=== PATIENT | female | born 1950 | race Caucasian/White ===

== ENCOUNTER 2021-05-10 21:46 | Emergency (ER) | payer OTHER ==
[~2021-05-10] VITALS: Ht 149.9 cm; Wt 61.2 kg
[2021-05-10] MEDS ORDERED: PROAIR HFA8.5 GM INH (22:01)
[2021-05-10] MEDS ORDERED: FLONASE 0.05%50 MCG NARES (22:02)
[2021-05-10] MEDS ORDERED: ALIVE ONCE DAI1 EACH PO (22:02)
[2021-05-10] MEDS ORDERED: ALLEGRA ALLERG180 MG PO (22:02)
[2021-05-10] MEDS ORDERED: LISINOPRIL10 MG PO (22:02)
[2021-05-10] MEDS ORDERED: FOLIC ACID1 MG PO (22:02)
[2021-05-10] MEDS ORDERED: METHOTREXATE 22.5 M1 PO (22:03)
[2021-05-10] MEDS ORDERED: EFFER-K 10 MEQ10 ME1 PO (22:04)
[2021-05-10] MEDS ORDERED: SIMVASTATIN80 MG PO (22:04)
[2021-05-10] MEDS ORDERED: FISH OIL 1,2001 EAC3 PO (22:04)
[2021-05-10] MEDS ORDERED: VITAMIN B-1100 M2 PO (22:05)
[2021-05-10] MEDS ORDERED: COQ-1030 MG PO (22:05)
[2021-05-10] MEDS ORDERED: VITAMIN D31250 MCG PO (22:06)
[2021-05-10 22:35] LABS: ABSOLUTE BASOPHILS 0.1 thou/uL (0.0-0.2); ABSOLUTE EOSINOPHILS 0.2 thou/uL (0.0-0.7); ABSOLUTE LYMPHOCYTES 2.9 thou/uL (0.8-5.3); ABSOLUTE MONOCYTES 0.5 thou/uL (0.0-1.2); ABSOLUTE NEUTROPHILS 3.8 thou/uL (1.6-8.1); BASOPHILS 1.2 %; EOSINOPHILS 3.1 %; HEMATOCRIT 35.4 % (37.0-47.0); HEMOGLOBIN 11.7 gm/dL (12.0-15.0); LYMPHOCYTES 38.8 %; MCH 27.5 pg (26.0-34.0); MCV 83.5 fL (80.0-100.0); MPV 8.2 fl. (7.2-11.1); NUCLEATED RBCS 0 /100WBC; PLATELET COUNT* 254 thou/uL (150-400); POLYS 49.9 %; RBC 4.25 mil/uL (4.20-5.00); RDW-CV 15.6 % (10.5-14.5); WBC 7.6 thou/uL (4.0-11.0)
[2021-05-10 22:39] LABS: CALCIUM 8.9 mg/dL (8.5-10.1); CREATININE 0.9 mg/dL (0.6-1.3); POTASSIUM 3.5 mmol/L (3.5-5.1)
[2021-05-10 22:43] LABS: ALBUMIN 3.4 g/dL (3.4-5.0); TOTAL BILIRUBIN 0.1 mg/dL (<0.1-1.0); TOTAL PROTEIN 7.6 g/dL (6.4-8.2)
[2021-05-10 23:27] LABS: URINE BILIRUBIN NEGATIVE (Negative); URINE BLOOD TRACE (Negative); URINE CLARITY CLEAR; URINE COLOR YELLOW; URINE GLUCOSE-RANDOM NEGATIVE (Negative); URINE KETONES NEGATIVE (Negative); URINE LEUKOCYTES-REFLEX 1+ (Negative); URINE NITRITE-REFLEX NEGATIVE (Negative); URINE PROTEIN NEGATIVE (Negative); URINE SPECIFIC GRAVITY 1.015 (1.005-1.030); URINE UROBILINOGEN 0.2 E.U./dl (0.2-1.0)
[2021-05-10 23:47] LABS: BACTERIA-REFLEX >30 Many /HPF (None Seen); CRYSTALS None Seen /LPF (None Seen); FINE GRANULAR CASTS 0-3 Few /LPF (None Seen); HYALINE CASTS 0-3 Few /LPF (None Seen); MUCUS 4-6 Moderate strn/LPF (None Seen); SQUAMOUS 0-3 Few /LPF (0-3); URINE RBC 3-10 Few /HPF (0-2); URINE WBC-REFLEX >25 Many /HPF (0-5)
[2021-05-10 23:52] VITALS: BP 187/97
--- NOTE | 2021-05-11 14:34 | EKG ---
[place] [address] ELECTROCARDIOGRAM REPORT Name: JONATHAN SHINE Room: [facility]#: [id number] Admission: 05/10/21 Attend Phys: Discharge: Date of : 46 Date of Service: 05/10/212199 Report #: [id number] THIS REPORT FOR: //name// [facility] ED Test Date: 2021-05-10 Test Time: 22:00:23 Pat Name: JONATHAN SHINE Department: Room: Gender: [employer]: : 1950 Requested By: Avani Jara Order Number: [id number] MD: Ehsan Davis Measurements Intervals [place] Rate: 89 P: 47 DC: 129 QRS: 18 QRSD: 84 T: 46 QT: 395 QTc: 481 Interpretive Statements Sinus rhythm Borderline prolonged QT interval No previous ECG available for comparison Electronically Signed On 05-11-2021 14:34:25 CDT by Ehsan Davis [email or web address] <ELECTRONICALLY SIGNED> By: Ehsan Davis MD, [facility] 05/11/21 1434 99 99 Ehsan Davis MD, FACC /EPI
== END 2021-05-11 02:55 | disposition home or self-care (01) ==
LOC: M.ERS 21:46
PROVIDERS: Emergency Medicine
DX: I10 Essential (primary) hypertension (principal); Z59.0 Homelessness; Z88.2 Allergy status to sulfonamides; Z88.1 Allergy status to other antibiotic agents; Z91.018 Allergy to other foods; Z79.899 Other long term (current) drug therapy; Z79.2 Long term (current) use of antibiotics